=== PATIENT | male | born 1945 | race Caucasian/White ===

== ENCOUNTER 2016-06-14 18:35 | Emergency (ER) | payer OTHER ==
[~2016-06-14] VITALS: Ht 172.7 cm; Wt 88.5 kg
--- NOTE | 2016-06-14 19:14 | ED GI/GU/ABDOMINAL COMPLAINT ---
History of Present Illness General Chief Complaint: Abdominal Pain/Flank Pain Stated Complaint: UPPER ABD PAIN Source: patient Exam Limitations: no limitations Vital Signs & Intake/Output Vital Signs & Intake/Output Vital Signs Date Time Temp Pulse Resp B/P Pulse O2 O2 Flow FiO2 Ox Delivery Rate 06/14 2236 68 18 170/93 96 Room Air 06/14 2128 92 16 127/69 96 Room Air 06/14 2025 66 16 136/78 06/14 1999 Room Air 06/14 1846 97.7 75 12 145/87 98 Room Air Allergies Coded Allergies: NO KNOWN ALLERGIES (06/27/12) Reconcile Medications Alprazolam 0.5 MG TABLET 1 TAB PO BID ANXIETY (Reported) Amlodipine Besylate 10 MG TABLET 1 TAB PO DAILY BP (Reported) Aspirin (Ecotrin*) 81 MG TABLET.DR 1 TAB PO DAILY HEART/BLOOD (Reported) Clopidogrel Bisulfate (Clopidogrel) 75 MG TABLET 1 TAB PO DAILY BLOOD THINNER (Reported) Lisinopril 40 MG TABLET 1 TAB PO DAILY BP (Reported) Pantoprazole Sodium 40 MG TABLET.DR 1 TAB PO DAILY GI (Reported) Pantoprazole Sodium (Protonix) 40 MG TABLET.DR 1 TAB PO DAILY stomach burning Rosuvastatin Calcium (Crestor) 40 MG TABLET 1 TAB PO DAILY CHOLESTEROL ( Reported) Spironolactone 25 MG TABLET 1 TAB PO DAILY DIURETIC (Reported) Triage Note: PT STATES HE IS HAVING EPIGASTRIC PAIN. PT STATES THE PAIN STARTED AFTER HE ATE THIS AFTERNOON. PT REPORTS EATING BAKED ZITI. Triage Nurses Notes Reviewed? yes Onset: Gradual Duration: hour(s): Timing: recent history Quality/Severity: burning Location: epigastric Radiation: no radiation Activities at Onset: none Prior Abdominal Problems: similar symptoms Modifying Factors: Worsens With: eating. Associated Symptoms: abdominal pain HPI: 71-year-old gentleman history of coronary artery disease presents with mid epigastric burning abdominal discomfort since 7 PM. He states the pain is a 3-4 out of 10 at its worst. He states that presently his discomfort is a 3 out of 10. He notes that it began soon after eating dinner. He has no nausea vomiting chest pain shortness of breath diarrhea or radiating pain. He is otherwise well. Past History Travel History Traveled to [place] past 21 day No Medical History Any Pertinent Medical History? see below for history Neurological: TIA EENT: cataracts Cardiovascular: hypertension, hyperlipidemia Respiratory: NONE Gastrointestinal: irritable bowel syndrome Hepatic: NONE Renal: NONE Musculoskeletal: NONE Psychiatric: NONE Endocrine: NONE Blood Disorders: NONE Cancer(s): melanoma Surgical History Surgical History: none Psychosocial History Who do you live with Spouse What is your primary language B[place]wanan Tobacco Use: Quit >30 days ago ETOH Use: occasional use Illicit Drug Use: denies illicit drug use Family History Hx Contributory? No Review of Systems Review of Systems Constitutional: Reports: no symptoms. EENTM: Reports: no symptoms. Respiratory: Reports: no symptoms. Cardiovascular: Reports: no symptoms. GI: Reports: no symptoms. Genitourinary: Reports: no symptoms. Musculoskeletal: Reports: no symptoms. Skin: Reports: no symptoms. Neurological/Psychological: Reports: no symptoms. Hematologic/Endocrine: Reports: no symptoms. Immunologic/Allergic: Reports: no symptoms. All Other Systems: Reviewed and Negative Physical Exam Physical Exam General Appearance: well developed/nourished, no apparent distress Head: atraumatic, normal appearance Eyes: Bilateral: normal appearance. Ears, Nose, Throat, Mouth: hearing grossly normal Neck: normal inspection, supple, full range of motion, normal alignment Respiratory: normal breath sounds, chest non-tender, no respiratory distress, quiet respiration, lungs clear Cardiovascular: regular rate/rhythm Gastrointestinal: normal bowel sounds, soft, non-tender, no organomegaly Back: normal inspection, normal range of motion Extremities: normal range of motion Neurologic/Psych: no motor/sensory deficits, awake, alert, oriented x 3 Skin: intact, normal color, warm/dry Core Measures ACS in differential dx? No Severe Sepsis Present: No Septic Shock Present: No Progress Differential Diagnosis: AMI, gastritis, hepatitis, unstable angina Plan of Care: Orders Procedure Date/time Status PARTIAL THROMBOPLASTIN TIME 06/14 1924 Complete PROTHROMBIN TIME 06/14 1924 Complete D-DIMER 06/14 1924 Complete URINALYSIS 06/14 1914 Complete TROPONIN LEVEL 06/14 1913 Complete LIPASE 06/14 1913 Complete HEPATIC FUNCTION PANEL 06/14 1913 Complete CBC WITHOUT DIFFERENTIAL 06/14 1913 Complete BASIC METABOLIC PANEL 06/14 1913 Complete AMYLASE 06/14 1913 Complete EKG 06/14 1846 Active Laboratory Tests 06/14/161950: Urine Color YEL, Urine Clarity CLEAR, Urine pH 6.0, Ur Specific [place] 1.020, Urine Protein NEG, Urine Ketones NEG, Urine Nitrite NEG, Urine Bilirubin NEG, Urine Urobilinogen 0.2, Ur Leukocyte Esterase NEG, Ur Microscopic EXAM NOT REQUIRED, Urine Hemoglobin NEG, Urine Glucose NEG 06/14/160: Anion Gap 11, Estimated GFR 55 L, BUN/Creatinine Ratio 18.5, Glucose 96, Calcium 9.2, Total Bilirubin 0.5, Direct Bilirubin 0.5 H, AST 28, ALT 20 L, Alkaline Phosphatase 79, Troponin I 0.02, Total Protein 7.2, Albumin 4.1, Amylase 71, Lipase 345 H, PT 11.2, INR 1.07, APTT 29, D-Dimer 788 H, CBC w Diff NO MAN DIFF REQ, RBC 4.35 L, MCV 87.4, MCH 29.3, RDW 13.8, MPV 7.9, Gran % 53.6, Lymphocytes % 29.7, Monocytes % 10.8 H, Eosinophils % 3.9, Basophils % 2.0, Absolute Granulocytes 3.9, Absolute Lymphocytes 2.2, Absolute Monocytes 0.8 H, Absolute Eosinophils 0.3, Absolute Basophils 0.1, PUBS MCHC 33.5 Diagnostic Imaging: Viewed by Me: CT Scan. Discussed w/RAD: CT Scan. Radiology Impression: CT chest angiogram - reveals renal mass. No pulmonary embolism. full report below CXR Impression: no acute abnormality, no infiltrates, normal size heart, normal mediastinum Initial ED EKG: normal axis, normal intervals, normal p-waves, normal QRS complex, normal sinus rhythm Comments: PATIENT: JOSH BATRES PRESENT AGE: 71 PATIENT ACCOUNT NO: [id number] : 46 LOCATION: [facility] ORDERING PHYSICIAN: NATASHA VASQUEZ MD SERVICE DATE: 06/14/16 EXAM TYPE: CAT - CTA CHEST-PULMONARY EMBOLISM EXAMINATION: CT ANGIOGRAM OF THE CHEST WITH AND WITHOUT CONTRAST (CT PULMONARY ANGIOGRAM FOR PE) CLINICAL INFORMATION: Reason for Study:
Presumptive Dx: chest pain, +dimer
Signs Symptoms: room 10
COMPARISON: No pertinent prior studies are available for comparison. TECHNIQUE: Prior to contrast administration, noncontrast localization images were obtained. Subsequently, multidetector volumetric imaging was performed from the thoracic inlet to below the diaphragms following the administration of 80 mL Omnipaque 350 intravenous contrast. No contrast reaction reported Sagittal, coronal, and MIP oblique sagittal reformatted images were obtained on the CT workstation, uploaded to PACS, and reviewed. Total exam dose-length product 480.3 mGy-cm FINDINGS: QUALITY OF STUDY/CONTRAST BOLUS: Satisfactory. PULMONARY ARTERIES: No central or segmental pulmonary emboli. THORACIC AORTA: No aneurysm or dissection. Mild calcific atherosclerotic disease noted. LUNG: There is a pulmonary nodule measuring 0.4 cm in size at the right lung apex (image 8, series 3). There is no focal consolidation. No pneumothorax. There are mild centrilobular emphysematous changes in the upper lobes. PLEURA: No pleural effusion or pneumothorax. MEDIASTINUM: Normal heart size. No pericardial effusion. No hilar or mediastinal lymphadenopathy. No evidence of septal bowing or right heart strain. There are moderate calcifications involving the left anterior descending and left circumflex coronary arteries. CHEST WALL/AXILLA: There is mild symmetric bilateral gynecomastia. No abnormal axillary adenopathy. OSSEOUS STRUCTURES: There are moderate degenerative changes involving the visualized portions of the thoracic and lumbar lumbar spine. These include prominent anterior bridging osteophytes at the mid spine level. UPPER ABDOMEN: There is a partially seen mass at the mid pole of the right kidney measuring approximately 3.1 x 3.3 cm. This appears to be solid in nature but is not well characterized on this study. Remainder of the upper abdomen is grossly unremarkable. No reflux of contrast into the hepatic veins to suggest elevated right heart pressures. IMPRESSION: 1. No acute pulmonary embolism. 2. No acute cardiopulmonary process. 3. Possible right renal solid mass. Dedicated right renal ultrasound is recommended for further clarification. 4. 4 mm right apical pulmonary nodule. Follow-up as per Fleischner Society criteria 5. Mild upper lobe centrilobular emphysematous change. VTE: negative Various management parameters for solitary pulmonary nodules are in the literature. According to the Fleischner Society, recommendations for pulmonary nodules are as follows: Nodule size < or = to 4 mm in LOW RISK PATIENTS: No follow up needed. Nodule size < or = to 4 mm in HIGH RISK PATIENTS: Follow up CT at 12 months; if unchanged, no further follow up. Nodule size > 4-6 mm in LOW RISK PATIENTS: Follow up CT at 12 months; if unchanged, no further follow up. Nodule size > 4-6 mm in HIGH RISK PATIENTS: Initial follow up CT at 6-12 months, then at 18-24 months if no change. Nodule size > 6-8 mm in LOW RISK PATIENTS: Initial follow up CT at 6-12 months, then at 18-24 months if no change. Nodule size > 6-8 mm in HIGH RISK PATIENTS: Initial follow up CT at 3-6 months, then 9-12 months and 24 months if no change. Nodule size > 8 mm in LOW RISK PATIENTS: Follow up CT at around 3, 9, and 24 months, dynamic contrast-enhanced CT, PET, and/or biopsy. Nodule size > 8 mm in HIGH RISK PATIENTS: Same as for low-risk patients. 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 <Electronically signed in Other Vendor System> SIGNED BY: KATI JOHNSTON MD 06/14/162211 Departure Departure Disposition: HOME OR SELF CARE Condition: Stable Clinical Impression Primary Impression: Abdominal pain Referrals: KETAN MAY MD (PCP/Family) Departure Forms: Customer Survey General Discharge Information Prescriptions: Current Visit Scripts Pantoprazole Sodium (Protonix) 1 TAB PO DAILY #30 TAB Comments 06/14/16, 23:00... Given the patient's history of coronary artery disease, I was concerned that his mid epigastric discomfort may have been an anginal equivalent. I gave sublingual nitroglycerin without effect. I gave GI cocktail which she noted improved his symptoms. I gave him Protonix 40 mg IV 1 which resolved his symptoms. Because of the positive d-dimer, I ordered a chest CT angioma. This was negative for pulmonary emboli but revealed a renal opacity as well as other nonacute findings. I discussed these findings with the patient. I suggested that the patient stay for a second troponin and a repeat EKG. However, because he said that his symptoms have completely resolved with the Protonix and GI cocktail, he wishes to leave. 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
[2016-06-14] MEDS ORDERED: ALPRAZOLAM0.5 M4 PO (19:28)
[2016-06-14] MEDS ORDERED: CLOPIDOGREL75 M1 PO (19:28)
[2016-06-14] MEDS ORDERED: AMLODIPINE BESY10 M1 PO (19:28)
[2016-06-14] MEDS ORDERED: CRESTOR40 M2 PO (19:28)
[2016-06-14] MEDS ORDERED: SPIRONOLACTONE25 M1 PO (19:29)
[2016-06-14] MEDS ORDERED: ASPIRIN EC81 M1 PO (19:29)
[2016-06-14] MEDS ORDERED: LISINOPRIL40 M1 PO (19:29)
[2016-06-14] MEDS ORDERED: PANTOPRAZOLE SO40 M1 PO (19:29)
[2016-06-14 19:48] LABS: ABSOLUTE BASOPHIL COUNT 0.1 /CUMM (0.0-0.2); ABSOLUTE EOSINOPHIL COUNT 0.3 /CUMM (0.0-0.7); ABSOLUTE GRANULOCYTE CT 3.9 /CUMM (1.4-6.5); ABSOLUTE LYMPH COUNT 2.2 /CUMM (1.2-3.4); ABSOLUTE MONOCYTE COUNT 0.8 /CUMM (0.10-0.60); EOSINOPHIL % 3.9 % (0-5); GRANULOCYTE % 53.6 % (42.2-75.2); MEAN CORPUSCULAR HGB 29.3 PG (27.0-31.0); MEAN CORPUSCULAR HGB CONC 33.5 G/DL (33.0-37.0); MEAN CORPUSCULAR VOLUME 87.4 FL (80.0-94.0); MEAN PLATELET VOLUME 7.9 FL (7.4-10.4); PLATELET COUNT 235 /CUMM (130-400); RBC DISTRIBUTION WIDTH 13.8 % (11.5-14.5); RED BLOOD CELL CT 4.35 /CUMM (4.70-6.10); WHITE BLOOD CELL COUNT 7.4 /CUMM (4.8-10.8)
[2016-06-14 20:02] LABS: PT 11.2 SEC (9.4-12.5); PTT 29 SEC (25-37)
--- NOTE | 2016-06-14 22:12 | CT SCAN REPORT ---
EXAMINATION: CT ANGIOGRAM OF THE CHEST WITH AND WITHOUT CONTRAST (CT PULMONARY ANGIOGRAM FOR PE) CLINICAL INFORMATION: Reason for Study:
Presumptive Dx: chest pain, +dimer
Signs Symptoms: room 10
COMPARISON: No pertinent prior studies are available for comparison. TECHNIQUE: Prior to contrast administration, noncontrast localization images were obtained. Subsequently, multidetector volumetric imaging was performed from the thoracic inlet to below the diaphragms following the administration of 80 mL Omnipaque 350 intravenous contrast. No contrast reaction reported Sagittal, coronal, and MIP oblique sagittal reformatted images were obtained on the CT workstation, uploaded to PACS, and reviewed. Total exam dose-length product 480.3 mGy-cm FINDINGS: QUALITY OF STUDY/CONTRAST BOLUS: Satisfactory. PULMONARY ARTERIES: No central or segmental pulmonary emboli. THORACIC AORTA: No aneurysm or dissection. Mild calcific atherosclerotic disease noted. LUNG: There is a pulmonary nodule measuring 0.4 cm in size at the right lung apex (image 8, series 3). There is no focal consolidation. No pneumothorax. There are mild centrilobular emphysematous changes in the upper lobes. PLEURA: No pleural effusion or pneumothorax. MEDIASTINUM: Normal heart size. No pericardial effusion. No hilar or mediastinal lymphadenopathy. No evidence of septal bowing or right heart strain. There are moderate calcifications involving the left anterior descending and left circumflex coronary arteries. CHEST WALL/AXILLA: There is mild symmetric bilateral gynecomastia. No abnormal axillary adenopathy. OSSEOUS STRUCTURES: There are moderate degenerative changes involving the visualized portions of the thoracic and lumbar lumbar spine. These include prominent anterior bridging osteophytes at the mid spine level. UPPER ABDOMEN: There is a partially seen mass at the mid pole of the right kidney measuring approximately 3.1 x 3.3 cm. This appears to be solid in nature but is not well characterized on this study. Remainder of the upper abdomen is grossly unremarkable. No reflux of contrast into the hepatic veins to suggest elevated right heart pressures. IMPRESSION: 1. No acute pulmonary embolism. 2. No acute cardiopulmonary process. 3. Possible right renal solid mass. Dedicated right renal ultrasound is recommended for further clarification. 4. 4 mm right apical pulmonary nodule. Follow-up as per Fleischner Society criteria 5. Mild upper lobe centrilobular emphysematous change. VTE: negative Various management parameters for solitary pulmonary nodules are in the literature. According to the Fleischner Society, recommendations for pulmonary nodules are as follows: Nodule size < or = to 4 mm in LOW RISK PATIENTS: No follow up needed. Nodule size < or = to 4 mm in HIGH RISK PATIENTS: Follow up CT at 12 months; if unchanged, no further follow up. Nodule size > 4-6 mm in LOW RISK PATIENTS: Follow up CT at 12 months; if unchanged, no further follow up. Nodule size > 4-6 mm in HIGH RISK PATIENTS: Initial follow up CT at 6-12 months, then at 18-24 months if no change. Nodule size > 6-8 mm in LOW RISK PATIENTS: Initial follow up CT at 6-12 months, then at 18-24 months if no change. Nodule size > 6-8 mm in HIGH RISK PATIENTS: Initial follow up CT at 3-6 months, then 9-12 months and 24 months if no change. Nodule size > 8 mm in LOW RISK PATIENTS: Follow up CT at around 3, 9, and 24 months, dynamic contrast-enhanced CT, PET, and/or biopsy. Nodule size > 8 mm in HIGH RISK PATIENTS: Same as for low-risk patients.
[2016-06-14] MEDS ORDERED: PROTONIX40 M3 PO (22:31)
[2016-06-14 22:36] VITALS: BP 170/93
== END 2016-06-14 22:39 ==
LOC: ERH 18:35
PROVIDERS: Pediatrics
DX: R10.13 Epigastric pain (principal)
CPT/HCPCS: 81003; 93005; 93010; 96374; J3490

== ENCOUNTER 2016-09-27 23:37 | Emergency (ER) | payer OTHER ==
[~2016-09-27] VITALS: Ht 172.7 cm; Wt 90.7 kg
[~2016-09-27 23:37] MED LIST: ALPRAZOLAM0.5 M4 PO; AMLODIPINE BESY10 M1 PO; ASPIRIN EC81 M1 PO; CLOPIDOGREL75 M1 PO; CRESTOR40 M2 PO; LISINOPRIL40 M1 PO; PANTOPRAZOLE SO40 M1 PO; PROTONIX40 M3 PO; SPIRONOLACTONE25 M1 PO
--- NOTE | 2016-09-27 23:54 | ED DYSPNEA/ASTHMA COMPLAINT ---
History of Present Illness General Chief Complaint: Dyspnea (COPD, CHF, Other) Stated Complaint: "KIDNEY SURGERY LAST WEDNESDAY, TODAY SOB SPO2 99%" Source: patient, family Exam Limitations: no limitations Vital Signs & Intake/Output Vital Signs & Intake/Output Vital Signs Date Time Temp Pulse Resp B/P B/P Pulse O2 O2 Flow FiO2 Mean Ox Delivery Rate 09/28 0207 97.3 67 18 113/61 99 Room Air 09/28 0005 97.3 69 18 114/60 98 Allergies Coded Allergies: NO KNOWN ALLERGIES (06/27/12) Reconcile Medications Alprazolam 0.5 MG TABLET 1 TAB PO BID ANXIETY (Reported) Amlodipine Besylate 10 MG TABLET 1 TAB PO DAILY BP (Reported) Aspirin (Ecotrin*) 81 MG TABLET.DR 1 TAB PO DAILY HEART/BLOOD (Reported) Clopidogrel Bisulfate (Clopidogrel) 75 MG TABLET 1 TAB PO DAILY BLOOD THINNER (Reported) Levofloxacin (Levaquin) 500 MG TABLET 1 TAB PO DAILY BRONCHITIS Lisinopril 40 MG TABLET 1 TAB PO DAILY BP (Reported) Pantoprazole Sodium 40 MG TABLET.DR 1 TAB PO DAILY GI (Reported) Pantoprazole Sodium (Protonix) 40 MG TABLET.DR 1 TAB PO DAILY stomach burning Rosuvastatin Calcium (Crestor) 40 MG TABLET 1 TAB PO DAILY CHOLESTEROL ( Reported) Spironolactone 25 MG TABLET 1 TAB PO DAILY DIURETIC (Reported) Triage Nurses Notes Reviewed? yes Onset: Abrupt Duration: hour(s): Timing: recent history Severity: moderate Activities at Onset: none Prior Episodes/Possible Cause: no prior episodes Modifying Factors: Improves With: rest. Associated Symptoms: "shortness of breath" HPI: 71 yo gentleman h/o partial right nephrectomy on september 17, presents with 2 episodes of shortness of breath, associated with diaphoresis, chills, and near-syncope. He states that he feels well now. He notes no chest pain, diarrhea, dysuria, headache, wheezing, or cough. He is otherwise well. Past History Travel History Traveled to [place] past 21 day No Medical History Any Pertinent Medical History? see below for history Neurological: TIA EENT: cataracts Cardiovascular: hypertension, hyperlipidemia Respiratory: NONE Gastrointestinal: irritable bowel syndrome Hepatic: NONE Renal: NONE Musculoskeletal: NONE Psychiatric: NONE Endocrine: NONE Blood Disorders: NONE Cancer(s): melanoma Surgical History Surgical History: none Psychosocial History Who do you live with Spouse What is your primary language [place] Family History Hx Contributory? No Review of Systems Review of Systems Constitutional: Reports: no symptoms. EENTM: Reports: no symptoms. Respiratory: Reports: no symptoms. Cardiovascular: Reports: no symptoms. GI: Reports: no symptoms. Genitourinary: Reports: no symptoms. Musculoskeletal: Reports: no symptoms. Skin: Reports: no symptoms. Neurological/Psychological: Reports: no symptoms. Hematologic/Endocrine: Reports: no symptoms. Immunologic/Allergic: Reports: no symptoms. All Other Systems: Reviewed and Negative Physical Exam Physical Exam General Appearance: well developed/nourished, no apparent distress Head: atraumatic, normal appearance Eyes: Bilateral: normal appearance. Ears, Nose, Throat: normal pharynx, normal ENT inspection Neck: normal inspection, supple, full range of motion Respiratory: chest non-tender, no respiratory distress, quiet respiration, diminished breath sounds at right base Cardiovascular: regular rate/rhythm Gastrointestinal: normal bowel sounds, soft, non-tender, no organomegaly Extremities: normal inspection Neurologic/Psych: no motor/sensory deficits, awake, alert, oriented x 3 Skin: intact, normal color, warm/dry Core Measures ACS in differential dx? No Severe Sepsis Present: No Septic Shock Present: No Progress Differential Diagnosis: asthma, AMI, bronchitis, pneumonia Plan of Care: Orders Procedure Date/time Status Add-on Test (ER Only) 09/28 0116 Active TROPONIN LEVEL 09/27 2348 Complete COMPREHENSIVE METABOLIC PANEL 09/27 2348 Complete CBC WITHOUT DIFFERENTIAL 09/28 2347 Complete EKG 09/27 2340 Active Laboratory Tests 09/27/16 2357: Anion Gap 13, Estimated GFR 43 L, BUN/Creatinine Ratio 14.4, Glucose 163 H, Calcium 8.6, Total Bilirubin 0.4, AST 31, ALT 69, Alkaline Phosphatase 84, Troponin I < 0.01, Total Protein 6.4, Albumin 3.6, Globulin 2.8, Albumin/ Globulin Ratio 1.3, CBC w Diff MAN DIFF ORDERED, RBC 3.71 L, MCV 87.6, MCH 28.6 , RDW 14.1, MPV 7.3 L, Gran % 84.1 H, Lymphocytes % 8.4 L, Monocytes % 5.2, Eosinophils % 2.2, Basophils % 0.1, Absolute Granulocytes 15.8 H, Absolute Lymphocytes 1.6, Absolute Monocytes 1.0 H, Absolute Eosinophils 0.4, Absolute Basophils 0, Platelet Estimate ADEQUATE, Ovalocytes 1+, PUBS MCHC 32.7 L 09/27/16 2353: D-Dimer Cancelled Diagnostic Imaging: Viewed by Me: Radiology Read. Discussed w/RAD: Radiology Read. CXR Impression: no acute abnormality, no infiltrates, normal size heart, normal mediastinum Initial ED EKG: normal axis, none, normal intervals, normal p-waves, normal QRS complex Comments: PATIENT: JOSH BATRES PRESENT AGE: 71 PATIENT ACCOUNT NO: [id number] : 46 LOCATION: [facility] ORDERING PHYSICIAN: NATASHA VASQUEZ MD SERVICE DATE: 09/27/16 EXAM TYPE: RAD - XRY-PORTABLE CHEST XRAY EXAMINATION: XR PORTABLE CHEST CLINICAL INFORMATION: Dyspnea COMPARISON: 06/14/2016 TECHNIQUE: Portable frontal view of the chest was obtained. FINDINGS: The lungs are well expanded with mild elevation of the right hemidiaphragm. No consolidation, edema, or effusion. No pneumothorax. The cardiomediastinal silhouette is unchanged. Aortic calcification noted. IMPRESSION: No acute pulmonary finding. DICTATED BY: MARY KATE LUCAS MD DATE/TIME DICTATED:09/28/16104 PIPELINE ENGINEER:JOY DATE/TIME TRANSCRIBED:09/28/16104 CONFIDENTIAL, DO NOT COPY WITHOUT APPROPRIATE AUTHORIZATION. <Electronically signed in Other Vendor System> SIGNED BY: MARY KATE LUCAS MD 09/28 Departure Departure Disposition: HOME OR SELF CARE Condition: Stable Clinical Impression Primary Impression: Bronchitis Referrals: KETAN MAY MD (PCP/Family) Departure Forms: Customer Survey General Discharge Information Prescriptions: Current Visit Scripts Levofloxacin (Levaquin) 1 TAB PO DAILY #10 TAB Comments PT comfortable throughtout ED stay. elevated wbc count noted with negative cxr... most consistent with bronchitis... pt safe for home with outpt meds. close follow up avised. Critical Care Note Critical Care Note Critical Care Time: non-applicable
[2016-09-28 00:20] LABS: ABSOLUTE BASOPHIL COUNT 0 /CUMM (0.0-0.2); ABSOLUTE EOSINOPHIL COUNT 0.4 /CUMM (0.0-0.7); ABSOLUTE GRANULOCYTE CT 15.8 /CUMM (1.4-6.5); ABSOLUTE LYMPH COUNT 1.6 /CUMM (1.2-3.4); BASOPHIL % 0.1 % (0.0-2.0); EOSINOPHIL % 2.2 % (0-5); GRANULOCYTE % 84.1 % (42.2-75.2); HEMATOCRIT 32.5 % (42-52); MEAN CORPUSCULAR HGB 28.6 PG (27.0-31.0); MEAN CORPUSCULAR HGB CONC 32.7 G/DL (33.0-37.0); MEAN CORPUSCULAR VOLUME 87.6 FL (80.0-94.0); MEAN PLATELET VOLUME 7.3 FL (7.4-10.4); PLATELET COUNT 392 /CUMM (130-400); RBC DISTRIBUTION WIDTH 14.1 % (11.5-14.5); RED BLOOD CELL CT 3.71 /CUMM (4.70-6.10); WHITE BLOOD CELL COUNT 18.8 /CUMM (4.8-10.8)
--- NOTE | 2016-09-28 01:08 | RADIOLOGY REPORT ---
EXAMINATION: XR PORTABLE CHEST CLINICAL INFORMATION: Dyspnea COMPARISON: 06/14/2016 TECHNIQUE: Portable frontal view of the chest was obtained. FINDINGS: The lungs are well expanded with mild elevation of the right hemidiaphragm. No consolidation, edema, or effusion. No pneumothorax. The cardiomediastinal silhouette is unchanged. Aortic calcification noted. IMPRESSION: No acute pulmonary finding.
[2016-09-28] MEDS ORDERED: LEVAQUIN500 M1 PO (01:42)
[2016-09-28 02:07] VITALS: BP 113/61
== END 2016-09-28 02:07 ==
LOC: ERH 23:37
PROVIDERS: Pediatrics
DX: J40 Bronchitis, not specified as acute or chronic (principal)
CPT/HCPCS: 93005; 93010; J3490

== ENCOUNTER 2017-05-29 17:21 | Observation (INO) | payer OTHER ==
[~2017-05-29] VITALS: Ht 172.7 cm; Wt 90.7 kg
[~2017-05-29 17:21] MED LIST changes: +CABERGOLINE0.5 M2 PO; +LEVAQUIN500 M1 PO
--- NOTE | 2017-05-29 18:03 | RADIOLOGY REPORT ---
EXAMINATION: XR CHEST CLINICAL INFORMATION: Cough, nonproductive COMPARISON: 09/28/2016 TECHNIQUE: 2 views of the chest were obtained. FINDINGS: Lung volumes are improved from the prior study. No focal consolidation or mass. Normal pulmonary vascularity. No pleural effusion or pneumothorax. Calcified aortic arch. Normal heart size. Degenerative changes of the thoracic spine with no acute osseous abnormality. IMPRESSION: No acute pulmonary disease.
--- NOTE | 2017-05-29 18:47 | ED INFLUENZA/URI COMPLAINT ---
History of Present Illness General Chief Complaint: Upper Respiratory Sx/Fever Stated Complaint: COLD SYMPTOMS Source: patient Exam Limitations: no limitations Allergies Coded Allergies: NO KNOWN ALLERGIES (06/27/12) Reconcile Medications Alprazolam 0.5 MG TABLET 1 TAB PO BID ANXIETY (Reported) Amlodipine Besylate 10 MG TABLET 1 TAB PO DAILY BP (Reported) Aspirin (Ecotrin*) 81 MG TABLET.DR 1 TAB PO DAILY HEART/BLOOD (Reported) Clopidogrel Bisulfate (Clopidogrel) 75 MG TABLET 1 TAB PO DAILY BLOOD THINNER (Reported) Levofloxacin (Levaquin) 500 MG TABLET 1 TAB PO DAILY BRONCHITIS Lisinopril 40 MG TABLET 1 TAB PO DAILY BP (Reported) Pantoprazole Sodium 40 MG TABLET.DR 1 TAB PO DAILY GI (Reported) Pantoprazole Sodium (Protonix) 40 MG TABLET.DR 1 TAB PO DAILY stomach burning Rosuvastatin Calcium (Crestor) 40 MG TABLET 1 TAB PO DAILY CHOLESTEROL ( Reported) Spironolactone 25 MG TABLET 1 TAB PO DAILY DIURETIC (Reported) Triage Note: PT COMPLAINS OF COUGH, NON PRODUCTIVE FOR THE PAST COUPLE OF DAYS, WORSE AT NIGHT Triage Nurses Notes Reviewed? yes Onset: Abrupt Timing: single episode today Severity: moderate Severity Numbers: 5 HPI: Patient is a 72-year-old male with a past medical history of CAD with cardiac stents currently Plavix, hyperprolactinemia currently on CABERGOLINE, hypertension and hyperlipidemia and his melanoma of the scalp who presents emergency room with in which yesterday patient again coughing at night dry nonproductive cough that continued today and which this afternoon patient was in his private residence in his home got up from the [facility] to answer a phone call from his answer the phone and then had a presumed loss of consciousness syncopal episode in which the police the patient was unconscious for approximately 30 seconds Y states that when patient began responding he was showing no disorientation or slurred speech patient states that he does not recall what occurred and states she has mild right gluteal pain due to fall Denies any other injury from the fall Patient believes that he has low blood pressure history as responsible for the fall Patient does state that recently his cis coordinator has put patient on the medication as stated above CABERGOLINE for a "pituitary issue" Patient currently denies any fevers chills headache blurred vision neck pain back pain chest pain nausea vomiting bowel or bladder incontinence or tongue biting episode patient is able to ambulate after the event (Paras Mullins) Vital Signs & Intake/Output Vital Signs & Intake/Output Vital Signs Date Time Temp Pulse Resp B/P B/P Pulse O2 O2 Flow FiO2 Mean Ox Delivery Rate 05/29 2101 75 110/61 05/29 1922 Room Air 05/29 1724 97.1 70 16 123/71 99 Room Air (Jeff CORDERO,Omar Osborne) Past History Travel History Traveled to [place] past 21 day No Medical History Any Pertinent Medical History? see below for history Neurological: TIA EENT: cataracts Cardiovascular: CAD, hypertension, hyperlipidemia Respiratory: NONE Gastrointestinal: irritable bowel syndrome Hepatic: NONE Renal: NONE Musculoskeletal: NONE Psychiatric: NONE Endocrine: NONE Blood Disorders: NONE Cancer(s): melanoma Surgical History Surgical History: none Psychosocial History Who do you live with Spouse What is your primary language [place] Tobacco Use: Never used ETOH Use: denies use Illicit Drug Use: denies illicit drug use Family History Hx Contributory? No (Paras Mullins) Review of Systems Review of Systems Constitutional: Reports: no symptoms. EENTM: Reports: no symptoms. Respiratory: Reports: no symptoms. Cardiovascular: Reports: see HPI, syncope. GI: Reports: no symptoms. Genitourinary: Reports: no symptoms. Musculoskeletal: Reports: see HPI. Skin: Reports: no symptoms. Neurological/Psychological: Reports: no symptoms. Hematologic/Endocrine: Reports: no symptoms. Immunologic/Allergic: Reports: no symptoms. All Other Systems: Reviewed and Negative (Paras Mullins) Physical Exam Physical Exam General Appearance: no apparent distress, alert Head: atraumatic Eyes: Bilateral: normal appearance, PERRL, EOMI. Ears, Nose, Throat: normal ENT inspection, moist mucous membrane, hearing grossly normal Neck: normal inspection, supple, full range of motion, no midline tenderness, NO CAROTID BRUITS Respiratory: normal breath sounds, chest non-tender, no respiratory distress Cardiovascular: regular rate/rhythm Peripheral Pulses: 2+ radial (R) Gastrointestinal: normal bowel sounds, soft, non-tender Extremities: normal inspection, normal capillary refill, normal range of motion Neurologic/Psych: no motor/sensory deficits, awake, alert, oriented x 3 Skin: intact, normal color, warm/dry Core Measures Sepsis Present: No Sepsis Focused Exam Completed? No (Paras Mullins) Progress Differential Diagnosis: influenza, meningitis, neutropenia, otitis, pneumonia, pharyngitis, sinusitis Plan of Care: Orders Procedure Date/time Status Heart Healthy Diet 05/[address] in observation 05/29 2115 Active ED Holding Orders 05/29 2115 Active Vital Signs 05/29 2115 Active Code Status 05/29 2115 Active RAPID VIRAL INFLUENZA A 05/29 2021 Active PROLACTIN 05/29 1949 Complete MISTAKE 05/29 1932 Active Telemetry/Head Of Geography 05/29 1932 Active TROPONIN LEVEL 05/29 1916 Complete MAGNESIUM 05/29 1916 Complete COMPREHENSIVE METABOLIC PANEL 05/29 1916 Complete CBC WITHOUT DIFFERENTIAL 05/29 1916 Complete EKG 05/29 1916 Active Current Medications Sig/Jacky Start time Last Medication Dose Stop Time Status Admin Benzonatate 100 MG ONCE ONE 05/29 2129 UNVr (Tessalon Capsule) 05/29 2130 Guaifenesin 600 MG ONCE ONE 05/29 2129 UNVr (Mucinex) 05/29 2130 Laboratory Tests 05/29/17 1950: Anion Gap 13, Estimated GFR 31 L, BUN/Creatinine Ratio 16.7, Glucose 111 H, Calcium 9.1, Magnesium 2.1, Total Bilirubin 0.4, AST 33, ALT 35, Alkaline Phosphatase 89, Troponin I 0.03, Total Protein 7.3, Albumin 4.3, Globulin 3.0, Albumin/Globulin Ratio 1.4, Prolactin < 1.4 L, CBC w Diff NO MAN DIFF REQ, RBC 4.46 L, MCV 88.7, MCH 29.8, RDW 14.0, MPV 7.6, Gran % 70.8, Lymphocytes % 17.5 L, Monocytes % 10.7 H, Eosinophils % 0.6, Basophils % 0.4, Absolute Granulocytes 4.2, Absolute Lymphocytes 1.1 L, Absolute Monocytes 0.6, Absolute Eosinophils 0, Absolute Basophils 0, PUBS MCHC 33.6 05/29/171934: Prolactin Cancelled Microbiology 05/29 2021 NASOPHARYN: Influenza Virus A & B Rapid Smear - ORD It is noted through old records the patient recently received a month ago with an MRI of his head for concerns of pituitary macroadenoma. Patient currently is resting comfortably at bedside and has unremarkable physical exam findings, Patient will be placed into telemetry observation for concerns of the syncopal episode occurring today Patient had negative orthostatics noted by nursing staff. I updated WITH PT FOR images findings and blood work he is currently resting comfortably Discussed patient with Dr. Colvin who advised patient to be placed in telemetry observation Diagnostic Imaging: Viewed by Me: CT Scan. CXR Impression: no acute abnormality, no infiltrates, normal size heart Initial ED EK BPM, FIRST DEGREE AV BLOCK Comments: PATIENT: JOSH BATRES PRESENT AGE: 72 PATIENT ACCOUNT NO: [id number] : 46 LOCATION: [facility] ORDERING PHYSICIAN: Paras CERVANTES SERVICE DATE: 05/29/17 EXAM TYPE: CAT - CT CERV SPINE WO IV CONTRAST; CT HEAD WO IV CONTRAST EXAMINATION: CT HEAD WITHOUT CONTRAST CT CERVICAL SPINE WITHOUT CONTRAST CLINICAL INFORMATION: Syncope. Head strike. COMPARISON: CT neck 04/09/2017. MRI of head 04/29/2017. CT chest 06/14/2016 TECHNIQUE: Imaging was performed from the skull base to vertex without intravenous administration of contrast. In addition, helical noncontrast CT imaging was acquired through the cervical spine and source images were reviewed along with axial reconstructions and sagittal and coronal MPRs. DLP: 939.83 mGy-cm FINDINGS: HEAD: No intracranial mass, hemorrhage, or midline shift is visualized. The ventricles and sulci are age-appropriate. Stable small lacunar infarcts in the right basal ganglia. No extra-axial collections are identified. The large mass in the central right aspect of the pituitary fossa with surrounding bony remodeling again seen. This was demonstrated to be a pituitary microadenoma on MRI of head 04/29/2017. See separate report. Vascular wall calcification of the carotid vessels again noted. No skull fracture. There is a soft tissue defect of the scalp at the right vertex, axial image 217 (6), that extends to the bone. CERVICAL SPINE: There is no evidence of acute cervical spine fracture. Vertebral bodies remain normal in height and alignment. There is degenerative spondylosis. Cervical disc height narrowing with endplate spurs most pronounced at the lower cervical spine, C5-C6. There is moderate multilevel facet joint bilateral. No pre- or paravertebral soft tissue abnormality is identified. The right lung apex there is a 6 x 4 mm lung nodule, image 283 (8). This is stable since the exam of 06/14/2016 IMPRESSION: 1. No acute intracranial pathology. 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 2. No CT evidence of acute cervical spine fracture or traumatic subluxation. Degenerative spondylosis of cervical spine. 3. 6 mm lung nodule right lung apex stable since CAT scan 06/14/2016 DICTATED BY: Dean Sharpe MD DATE/TIME DICTATED:05/29/172021 SEPTIC TANK SERVICER:JOY PATIENT: JOSH BATRES PRESENT AGE: 72 PATIENT ACCOUNT NO: [id number] : 46 LOCATION: [facility] ORDERING PHYSICIAN: Terence Burrell DO SERVICE DATE: 05/29/17 EXAM TYPE: RAD - XRY-CHEST XRAY, TWO VIEWS EXAMINATION: XR CHEST CLINICAL INFORMATION: Cough, nonproductive COMPARISON: 09/28/2016 TECHNIQUE: 2 views of the chest were obtained. FINDINGS: Lung volumes are improved from the prior study. No focal consolidation or mass. Normal pulmonary vascularity. No pleural effusion or pneumothorax. Calcified aortic arch. Normal heart size. Degenerative changes of the thoracic spine with no acute osseous abnormality. IMPRESSION: No acute pulmonary disease. DICTATED BY: Edouard Iverson MD (Paras Mullins) Departure Departure Disposition: STILL A PATIENT Condition: Stable Clinical Impression Primary Impression: Syncope Secondary Impressions: KENIA (acute kidney injury), URI (upper respiratory infection) Referrals: Alexa CORDERO,Omar Bowling (PCP/Family) Departure Forms: Customer Survey General Discharge Information Observation Note Spoke With: Marii CORDERO PHD,Americo Vera Physician Advisor Notified: JEFF CORDERO,OMAR Osborne Place Patient In: Non-ED OBS Care Area Rationale for Observation: My rational for observation is as follows [patient work requires telemetry observation for concerns of a syncopal episode, cardiology consultation is warranted, telemetry monitoring, repeat labs, carotid ultrasounds]. (Paras Mullins) PA/HEALTH CARE SPECIALIST Co-Sign Statement Statement: ED Attending supervision documentation- [X] I saw and evaluated the patient. I have also reviewed all the pertinent lab results and diagnostic results. I agree with the findings and the plan of care as documented in the PA's/HEALTH CARE SPECIALIST's documentation. [X] I have reviewed the ED Record and agree with the PA's/HEALTH CARE SPECIALIST's documentation. [] Additions or exceptions (if any) to the PAs/HEALTH CARE SPECIALIST's note and plan are summarized below: [Syncopal episode with no prodromal symptoms. High risk for cardiac dysrhythmia. Patient to be placed in observation for serial enzymes and telemetry monitoring, cardiology evaluation and further workup.] (Jeff CORDERO,Omar Osborne) Critical Care Note Critical Care Note Critical Care Time: 30-74 min (Paras Mullins) Critical Care Note Critical Care Time: 30-74 min (Paras Mullins) (Paras Mullins)
[2017-05-29 20:00] LABS: ABSOLUTE BASOPHIL COUNT 0 /CUMM (0.0-0.2); ABSOLUTE EOSINOPHIL COUNT 0 /CUMM (0.0-0.7); ABSOLUTE GRANULOCYTE CT 4.2 /CUMM (1.4-6.5); ABSOLUTE LYMPH COUNT 1.1 /CUMM (1.2-3.4); ABSOLUTE MONOCYTE COUNT 0.6 /CUMM (0.10-0.60); BASOPHIL % 0.4 % (0.0-2.0); EOSINOPHIL % 0.6 % (0-5); GRANULOCYTE % 70.8 % (42.2-75.2); HEMATOCRIT 39.5 % (42-52); MEAN CORPUSCULAR HGB 29.8 PG (27.0-31.0); MEAN CORPUSCULAR HGB CONC 33.6 G/DL (33.0-37.0); MEAN CORPUSCULAR VOLUME 88.7 FL (80.0-94.0); MEAN PLATELET VOLUME 7.6 FL (7.4-10.4); PLATELET COUNT 191 /CUMM (130-400); RED BLOOD CELL CT 4.46 /CUMM (4.70-6.10)
--- NOTE | 2017-05-29 20:36 | CT SCAN REPORT ---
EXAMINATION: CT HEAD WITHOUT CONTRAST CT CERVICAL SPINE WITHOUT CONTRAST CLINICAL INFORMATION: Syncope. Head strike. COMPARISON: CT neck 04/09/2017. MRI of head 04/29/2017. CT chest 06/14/2016 TECHNIQUE: Imaging was performed from the skull base to vertex without intravenous administration of contrast. In addition, helical noncontrast CT imaging was acquired through the cervical spine and source images were reviewed along with axial reconstructions and sagittal and coronal MPRs. DLP: 939.83 mGy-cm FINDINGS: HEAD: No intracranial mass, hemorrhage, or midline shift is visualized. The ventricles and sulci are age-appropriate. Stable small lacunar infarcts in the right basal ganglia. No extra-axial collections are identified. The large mass in the central right aspect of the pituitary fossa with surrounding bony remodeling again seen. This was demonstrated to be a pituitary microadenoma on MRI of head 04/29/2017. See separate report. Vascular wall calcification of the carotid vessels again noted. No skull fracture. There is a soft tissue defect of the scalp at the right vertex, axial image 217 (6), that extends to the bone. CERVICAL SPINE: There is no evidence of acute cervical spine fracture. Vertebral bodies remain normal in height and alignment. There is degenerative spondylosis. Cervical disc height narrowing with endplate spurs most pronounced at the lower cervical spine, C5-C6. There is moderate multilevel facet joint bilateral. No pre- or paravertebral soft tissue abnormality is identified. The right lung apex there is a 6 x 4 mm lung nodule, image 283 (8). This is stable since the exam of 06/14/2016 IMPRESSION: 1. No acute intracranial pathology. 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 2. No CT evidence of acute cervical spine fracture or traumatic subluxation. Degenerative spondylosis of cervical spine. 3. 6 mm lung nodule right lung apex stable since CAT scan 06/14/2016
--- NOTE | 2017-05-29 22:29 | History & Physical ---
General Information and [facility] MD Statement: I have seen and personally examined JOSH BATRES and documented this H&P. The patient is a 72 year old M who presented with a patient stated chief complaint of [SYNCOPE]. Source of Information: patient Exam Limitations: no limitations History of Present Illness: 72-year-old male with a past medical history of coronary artery disease status post stents on Plavix, hyperprolactinemia currently on Cabergoline, hypertension , hyperlipidemia, melanoma of the scalp who presents to the ED after having an unwitnessed syncopal event. According to the patient he was initially associated helped until this morning when he got out of his chair to answer the phone for his is calling him from outside when he felt down and passed out. He states that he may have been a police a couple of seconds. He denies hitting his head or being convinced refused for having any slurred speech. Of note he does endorse having a low blood pressure this morning stating that was 87/57 as he had been feeling tired the entire morning. His borderline blood pressures are in the 120s. Patient does endorse 2 episodes of diarrhea that was nonbloody and watery history. He denies any chest pain, shortness of breath, however does endorse chills that started around Wednesday. Of note he never takes his flu shot and did not take one this season. He also endorses cough that started last night together with a sore throat that started night. The cough is nonproductive. Denies any history of sick contact. Of note he pulls up with Dr. Palencia and Dr. schuster he has a history of coronary artery disease and is status post stents and on 2 antiplatelet therapy with aspirin and Plavix. He states that his stents were placed about 5 years ago. He reports a that she recently had an echocardiogram done that was normal. Allergies/Medications Allergies: Coded Allergies: NO KNOWN ALLERGIES (06/27/12) Home Med list Alprazolam 0.5 MG TABLET 1 TAB PO BID ANXIETY (Reported) Amlodipine Besylate 10 MG TABLET 1 TAB PO DAILY BP (Reported) Aspirin (Ecotrin*) 81 MG TABLET. 1 TAB PO DAILY HEART/BLOOD (Reported) Cabergoline 0.5 MG TABLET 0.5 TAB PO PROLCATINOMA (Reported) Clopidogrel Bisulfate (Clopidogrel) 75 MG TABLET 1 TAB PO DAILY BLOOD THINNER (Reported) Oseltamivir Phosphate (Tamiflu) 30 MG CAPSULE 1 CAP PO BID influenza . Pantoprazole Sodium (Protonix) 40 MG TABLET.DR 1 TAB PO DAILY stomach burning Rosuvastatin Calcium (Crestor) 40 MG TABLET 1 TAB PO DAILY CHOLESTEROL ( Reported) Compliance With Home Meds: GOOD Past History Travel History Traveled to [place] past 21 day No Medical History Neurological: TIA EENT: cataracts Cardiovascular: CAD, hypertension, hyperlipidemia Respiratory: NONE Gastrointestinal: irritable bowel syndrome Hepatic: NONE Renal: NONE Musculoskeletal: NONE Psychiatric: NONE Endocrine: NONE Blood Disorders: NONE Cancer(s): melanoma Surgical History Surgical History: none Past Family/Social History Family History Relations & Conditions if any MOTHER FH: HTN (hypertension) FH: Parkinson's disease FATHER FH: stroke Psychosocial History Where do you live? Home Who Do You Live With? spouse Smoking Status: Former Smoker ETOH Use: denies use Illicit Drug Use: denies illicit drug use Functional Ability ADLs Independent: dressing, eating, toileting, bathing. Ambulation: independent IADLs Independent: shopping, housework, finances, food prep, telephone, transportation , medication admin. Review of Systems Review of Systems Constitutional: Reports: chills, weakness. Denies: diaphoresis, fever, malaise. EENTM: Reports: throat pain. Denies: visual changes. Cardiovascular: Reports: palpitations, peripheral edema, syncope. Denies: chest pain, orthopena. Respiratory: Reports: cough. Denies: hemoptysis, orthopnea, short of breath, sputum production, wheezing. GI: Reports: diarrhea. Denies: abdominal pain, nausea, vomiting. Genitourinary: Denies: dysuria, frequency. Musculoskeletal: Reports: no symptoms. Neurological/Psychological: Denies: headache, numbness, tremors, weakness. Exam & Diagnostic Data Last 24 Hrs of Vital Signs/I&O Vital Signs Date Time Temp Pulse Resp B/P B/P Pulse O2 O2 Flow FiO2 Mean Ox Delivery Rate 05/29 2218 98.5 73 16 137/60 98 Room Air 05/29 2101 75 110/61 05/29 1933 98.1 74 18 128/66 99 Room Air 05/29 1922 Room Air 05/29 1724 97.1 70 16 123/71 99 Room Air Physical Exam General Appearance Alert, Oriented X3, Cooperative, No Acute Distress Skin No Rashes Skin Temp/Moisture Exam: Warm/Dry HEENT Atraumatic, PERRLA, EOMI, dry mucous membranes Neck Supple, No JVD, No thryomegaly, No LAD Cardiovascular Regular Rate, Normal S1, Normal S2, No Murmurs Lungs Clear to Auscultation, Normal Air Movement Abdomen Normal Bowel Sounds, Soft, No Tenderness Neurological Normal Speech, Strength at 5/5 X4 Ext, Normal Tone, Sensation Intact, Cranial Nerves 3-12 NL, Reflexes 2+ Extremities No Edema, Normal Pulses, No Tenderness/Swelling Vascular Normal Pulses Last 24 Hrs of Labs/Ricky: Laboratory Tests 05/30/17 0149: Troponin I 0.03 05/29/17 1950: Anion Gap 13, Estimated GFR 31 L, BUN/Creatinine Ratio 16.7, Glucose 111 H, Calcium 9.1, Magnesium 2.1, Total Bilirubin 0.4, AST 33, ALT 35, Alkaline Phosphatase 89, Troponin I 0.03, Total Protein 7.3, Albumin 4.3, Globulin 3.0, Albumin/Globulin Ratio 1.4, Prolactin < 1.4 L, CBC w Diff NO MAN DIFF REQ, RBC 4.46 L, MCV 88.7, MCH 29.8, RDW 14.0, MPV 7.6, Gran % 70.8, Lymphocytes % 17.5 L, Monocytes % 10.7 H, Eosinophils % 0.6, Basophils % 0.4, Absolute Granulocytes 4.2, Absolute Lymphocytes 1.1 L, Absolute Monocytes 0.6, Absolute Eosinophils 0, Absolute Basophils 0, PUBS MCHC 33.6 05/29/17 193: Prolactin Cancelled Microbiology 05/29 2199 NASOPHARYN: Influenza Virus A & B Rapid Smear - COMP INFLUENZA TYPE B Diagnostic Data EKG Results Normal sinus rhythm with a heart rate of 71, normal axis, no ST-T changes, first -degree AV block. CXR Results FINDINGS: Lung volumes are improved from the prior study. No focal consolidation or mass. Normal pulmonary vascularity. No pleural effusion or pneumothorax. Calcified aortic arch. Normal heart size. Degenerative changes of the thoracic spine with no acute osseous abnormality. IMPRESSION: No acute pulmonary disease. Other Results SERVICE DATE: 05/29/17-1932 EXAM TYPE: CAT - CT CERV SPINE WO IV CONTRAST; CT HEAD WO IV CONTRAST FINDINGS: HEAD: No intracranial mass, hemorrhage, or midline shift is visualized. The ventricles and sulci are age-appropriate. Stable small lacunar infarcts in the right basal ganglia. No extra-axial collections are identified. The large mass in the central right aspect of the pituitary fossa with surrounding bony remodeling again seen. This was demonstrated to be a pituitary microadenoma on MRI of head 04/29/2017. See separate report. Vascular wall calcification of the carotid vessels again noted. No skull fracture. There is a soft tissue defect of the scalp at the right vertex, axial image 217 (6), that extends to the bone. CERVICAL SPINE: There is no evidence of acute cervical spine fracture. Vertebral bodies remain normal in height and alignment. There is degenerative spondylosis. Cervical disc height narrowing with endplate spurs most pronounced at the lower cervical spine, C5-C6. There is moderate multilevel facet joint bilateral. No pre- or paravertebral soft tissue abnormality is identified. The right lung apex there is a 6 x 4 mm lung nodule, image 283 (8). This is stable since the exam of 06/14/2016 IMPRESSION: 1. No acute intracranial pathology. 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 2. No CT evidence of acute cervical spine fracture or traumatic subluxation. Degenerative spondylosis of cervical spine. 3. 6 mm lung nodule right lung apex stable since CAT scan 06/14/2016 Assessment/Plan Assessment: 72-year-old male with a past medical history of coronary artery disease status post stents on Plavix, hyperprolactinemia currently on Keppra going, hypertension, hyperlipidemia, melanoma of the scalp who presents to the ED dry nonproductive cough that continued today and which this afternoon patient was in his private residence in his home got up from the sofa to answer a phone call from his answer the phone and then had a presumed loss of consciousness syncopal episode in which the police the patient was unconscious for approximately 30 seconds Vitals at the time of admission blood pressure 110/61, respiratory rate of 16, pulse of 70, afebrile saturating 99% on room air. Labs pertinent for an H&H of 13.3/39.5, white blood cell count of 6.0, normal platelet count of 1 91,000. Serum chemistries pertinent for a normal sodium 137 , potassium of 4.0, bicarbonate 24, anion gap of 13, BUN 35 and 2.1 baseline around 1.4. LFTs unremarkable with an AST/L2 32/35, alkaline phosphatase of 89, total bili of 2.4 and is remarkable 2.1. First set of troponin 0.03. Prolactin was less than 1.4. Chest x-ray showed no acute pulmonary disease. 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 Assessment and plan Placed under observation on telemetry for syncope #Syncope Most likely secondary to dehydration versus arrhythmia versus any valvular abnormality including aortic stenosis. We'll hydrate him with IV fluids at 75 MLS per hour Rule out ACS with troponins and EKG at 1 AM and 8 AM. Obtain records from audio visual director Dr. Palencia's office regarding the echocardiogram. Consider repeating echo to rule out for any valvular pathologies including earache stenosis. Of note patient does not have any heart murmur exam. Check orthostatic vitals Cardiology consult in a.m. with Dr. Colvin #Coronary artery disease Continue on aspirin 81 mg daily, Lipitor 80 mg daily, Spironolactone 25 mg PO daily; hold lisinopril given kenia #HTN Most likely secondary to dehydration in the setting of being on an AVILA Avoid nephrotoxic agents, hydrate with IV fluids and follow-up BEP in a.m. Continue to hold lisinopril for now and resume his renal function improves. #Influenza type B Patient is positive for flu will start him on Tamiflu 30 mg twice a day renally adjusted Place him on droplet precautions #Macroadenoma Continue on Ergotamine 0.5 mg every Wednesday and #Anxiety Continue on Xanax 0.5 mg twice a day by mouth #Hypertension Continue on amlodipine 10 mg daily Diet Heart healthy DVT prophylaxis On heparin 5000 international units 3 times a day subcutaneous CODE STATUS Full code As Ranked By This Provider Problem List: 1. Syncope 2. KENIA (acute kidney injury) 3. Flu Core Measures/Misc (02/07) Acute Coronary Syndrome ACS Diagnosis: No Congestive Heart Failure Congestive Heart Failure Diagnosis No Cerebrovascular Accident CVA/TIA Diagnosis: No VTE (View Protocol) VTE Risk Factors Age>40 No Mechanical VTE Prophylaxis d/t N/A MechProphylax Ordered No VTE Pharm Prophylaxis d/t NA PharmProphylax ordered Sepsis (View protocol) Sepsis Present: No Resident Review Statement Resident Statement: admitted by resident
[2017-05-30 06:04] VITALS: BP 121/69
[2017-05-30 06:04] LABS: ABSOLUTE BASOPHIL COUNT 0 /CUMM (0.0-0.2); ABSOLUTE EOSINOPHIL COUNT 0 /CUMM (0.0-0.7); ABSOLUTE GRANULOCYTE CT 2.8 /CUMM (1.4-6.5); ABSOLUTE MONOCYTE COUNT 0.5 /CUMM (0.10-0.60); BASOPHIL % 0.4 % (0.0-2.0); EOSINOPHIL % 0.9 % (0-5); GRANULOCYTE % 64.2 % (42.2-75.2); MEAN CORPUSCULAR HGB 29.7 PG (27.0-31.0); MEAN CORPUSCULAR VOLUME 87.4 FL (80.0-94.0); MEAN PLATELET VOLUME 7.6 FL (7.4-10.4); PLATELET COUNT 139 /CUMM (130-400); RBC DISTRIBUTION WIDTH 13.5 % (11.5-14.5); RED BLOOD CELL CT 3.94 /CUMM (4.70-6.10); WHITE BLOOD CELL COUNT 4.4 /CUMM (4.8-10.8)
[2017-05-30 06:05] VITALS: BP 121/69
[2017-05-30 06:06] VITALS: BP 121/69
[2017-05-30 06:08] LABS: HEMATOCRIT 34.5 % (42-52)
--- NOTE | 2017-05-30 11:29 | PN- Housestaff ---
Subjective Follow-up For: Syncope Rule out ACS flu Acute kidney injury Complaints: no complaints Subjective: patient was seen and examined this morning. He is alert awake and oriented to time place and person. No acute events overnight. music professor was uneventful. Patient denies any chest pain, palpitations, short of breath, fever, cough. Denies complaints Wants to leave this afternoon. Vitals were stable Review of Systems Constitutional: Reports: see HPI. Objective Last 24 Hrs of Vital Signs/I&O Vital Signs Date Time Temp Pulse Resp B/P B/P Pulse O2 O2 Flow FiO2 Mean Ox Delivery Rate 05/30 1137 98.3 66 20 123/62 94 05/30 1029 65 123/68 05/30 0606 99.5 69 20 121/69 96 Room Air 05/30 0605 99.5 69 20 121/69 96 Room Air 05/30 0604 99.5 69 20 121/69 96 Room Air 05/30 0602 99.5 69 20 121/69 96 Room Air 05/30 0156 99.8 72 20 138/71 94 Room Air 05/29 2314 99.5 81 20 160/76 98 Room Air 05/29 2218 98.5 73 16 137/60 98 Room Air 05/29 2101 75 110/61 05/29 1933 98.1 74 18 128/66 99 Room Air 05/29 1922 Room Air 05/29 1724 97.1 70 16 123/71 99 Room Air Intake & Output 05/30 1600 07 0800 05/30 0000 Intake Total 1000 Output Total 1200 Balance -1200 1000 Intake, IV 1000 Output, Urine 1200 Patient 90.718 kg 90.718 kg Weight Physical Exam General Appearance: Alert, Oriented X3, Cooperative, No Acute Distress Skin: No Rashes, No Breakdown HEENT: Atraumatic, PERRLA, EOMI, Mucous Membr. moist/pink Other Physical Findings: HEENT Atraumatic, PERRLA, EOMI, dry mucous membranes Neck Supple, No JVD, No thryomegaly, No LAD Cardiovascular Regular Rate, Normal S1, Normal S2, No Murmurs Lungs Clear to Auscultation, Normal Air Movement Abdomen Normal Bowel Sounds, Soft, No Tenderness Neurological Normal Speech, Strength at 5/5 X4 Ext, Normal Tone, Sensation Intact, Cranial Nerves 3-12 NL, Reflexes 2+ Extremities No Edema, Current Medications: Current Medications Sig/Jacky Start time Last Medication Dose Route Stop Time Status Admin Alprazolam 0 .STK-MED ONE 05/30 1015 DC PO Alprazolam 0.5 MG BID 05/30 1000 AC 05/30 PO 06/06 0959 1029 Amlodipine Besylate 10 MG DAILY 05/30 1000 AC 05/30 PO 1029 Aspirin Buffered 81 MG DAILY 05/30 1000 AC 05/30 PO 1029 Atorvastatin Calcium 80 MG 1700 05/30 1700 AC PO Benzonatate 100 MG ONCE ONE 05/29 2130 DC 05/29 PO 05/29 2131 2215 Cabergoline 0.5 MG QTHURS 06/03 1000 AC PO Cabergoline 0.5 MG QMON 05/31 07 AC PO Clopidogrel Bisulfate 75 MG DAILY 05/30 1000 AC 05/30 PO 1029 Guaifenesin 600 MG ONCE ONE 05/29 2130 DC 05/29 PO 05/29 2131 2215 Heparin Sodium 0 .STK-MED ONE 05/30 0554 DC (Porcine) .ROUTE Heparin Sodium 0 .STK-MED ONE 05/29 2332 DC (Porcine) .ROUTE Heparin Sodium 5,000 UNIT Q8 05/29 2317 AC 05/30 (Porcine) SC 0601 Non-Formulary 0 SEE ADMIN CRITERIA 05/30 0015 CAN Medication ANY Omeprazole 40 MG DAILY AC 05/30 0700 AC 05/30 PO 0601 Omeprazole 0 .STK-MED ONE 05/30 0554 DC PO Oseltamivir Phosphate 30 MG BID 05/29 2243 AC 05/30 PO 06/02 2242 1029 Sodium Chloride 1,000 ML Q13H 05/29 2330 AC 05/29 IV 05/31 0129 2337 Sodium Chloride 1,000 ML BOLUS ONE 05/29 2045 DC 05/29 IV 05/29 2144 2105 Spironolactone 25 MG DAILY 05/30 1000 AC 05/30 PO 1029 Last 24 Hrs of Lab/Ricky Results Last 24 Hrs of Labs/Mics: Laboratory Tests 05/30/17 0557: Anion Gap 9, Estimated GFR 46 L, BUN/Creatinine Ratio 18.0, CBC w Diff NO MAN DIFF REQ, RBC 3.94 L, MCV 87.4, MCH 29.7, RDW 13.5, MPV 7.6, Gran % 64.2, Lymphocytes % 22.1, Monocytes % 12.4 H, Eosinophils % 0.9, Basophils % 0.4, Absolute Granulocytes 2.8, Absolute Lymphocytes 1.0 L, Absolute Monocytes 0.5, Absolute Eosinophils 0, Absolute Basophils 0, PUBS MCHC 34.0 05/30/17 0149: Troponin I 0.03 05/29/172199: Virus Culture Pending 05/29/17 1950: Anion Gap 13, Estimated GFR 31 L, BUN/Creatinine Ratio 16.7, Glucose 111 H, Calcium 9.1, Magnesium 2.1, Total Bilirubin 0.4, AST 33, ALT 35, Alkaline Phosphatase 89, Troponin I 0.03, Total Protein 7.3, Albumin 4.3, Globulin 3.0, Albumin/Globulin Ratio 1.4, Prolactin < 1.4 L, CBC w Diff NO MAN DIFF REQ, RBC 4.46 L, MCV 88.7, MCH 29.8, RDW 14.0, MPV 7.6, Gran % 70.8, Lymphocytes % 17.5 L, Monocytes % 10.7 H, Eosinophils % 0.6, Basophils % 0.4, Absolute Granulocytes 4.2, Absolute Lymphocytes 1.1 L, Absolute Monocytes 0.6, Absolute Eosinophils 0, Absolute Basophils 0, PUBS MCHC 33.6 05/29/17 193: Prolactin Cancelled Microbiology 05/29 2199 NASOPHARYN: Influenza Virus A & B Rapid Smear - COMP INFLUENZA TYPE B Assessment/Plan Assessment: 72-year-old male with a past medical history of coronary artery disease status post stents on Plavix, hyperprolactinemia currently on Keppra going, hypertension, hyperlipidemia, melanoma of the scalp who presents to the ED for dry nonproductive cough and presumed loss of consciousness syncopal episode. patient was unconscious for approximately 30 seconds. Vitals at the time of admission blood pressure 110/61, respiratory rate of 16, pulse of 70, afebrile saturating 99% on room air. Labs pertinent for an H&H of 13.3/39.5, white blood cell count of 6.0, normal platelet count of 1 91,000. Serum chemistries pertinent for a normal sodium 137 , potassium of 4.0, bicarbonate 24, anion gap of 13, BUN 35 and 2.1 baseline around 1.4. LFTs unremarkable with an AST/L2 32/35, alkaline phosphatase of 89, total bili of 2.4 and is remarkable 2.1. First set of troponin 0.03. Prolactin was less than 1.4. Chest x-ray showed no acute pulmonary disease. 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 Assessment and plan Placed under observation on telemetry for syncope #Syncope Most likely secondary to dehydration versus arrhythmia versus any valvular abnormality including aortic stenosis. We'll hydrate him with IV fluids at 75 MLS per hour Rule out ACS with troponins and EKG - normal will Obtain records from milking worker Dr. Palencia's office regarding the echocardiogram. Consider repeating echo to rule out for any valvular pathologies based on cardiology recommendations orthostatic vitals were normal Dr. Colvin on board #Coronary artery disease Continue on aspirin 81 mg daily, Lipitor 80 mg daily, Spiranolactone 25 mg hold lisinopril given kenia KENIA Most likely secondary to dehydration in the setting of being on an eve Avoid nephrotoxic agents, hydrate with IV fluids and follow-up BEP in a.m. cr improving 1.5 from 2.1 Continue to hold lisinopril for now and resume if his renal function improves. #Influenza type B Patient is positive for flu will start him on Tamiflu 30 mg twice a day renally adjusted Place him on droplet precautions #Macroadenoma Continue on Ergotamine 0.5 mg every Wednesday and #Anxiety Continue on Xanax 0.5 mg twice a day by mouth #Hypertension Continue on amlodipine 10 mg daily Diet Heart healthy DVT prophylaxis On heparin 5000 international units 3 times a day subcutaneous CODE STATUS Full code Problem List: 1. R/O ACS 2. Flu 3. KENIA (acute kidney injury) 4. URI (upper respiratory infection) 5. Syncope Pain Ratin Pain Location: n/a Pain Goal: Remain pain free Pain Plan: tylinol Tomorrow's Labs & Rationales: cbc bep
[2017-05-30] MEDS ORDERED: TAMIFLU30 M1 PO ×2 (12:24→14:53)
--- NOTE | 2017-05-30 12:26 | Patient Discharge Instructions ---
Discharge Instructions General Discharge Information You were seen/treated for: Syncope Ruled out ACS flu Acute kidney injury Special Instructions: Please follow-up with PCP in one week after discharge Please follow-up with shellfish shucker in 1 week after discharge Please complete your 5 day course of tamiflu Diet Continue normal diet: Yes Recommended Diet: Heart Healthy Activity Full Activity/No Limits: Yes Acute Coronary Syndrome Inclusion Criteria At DC or during hospital stay patient has or had the following: ACS DIAGNOSIS No Discharge Core Measures Meds if any: Prescribed or Continued at Discharge Meds if any: NOT Prescribed or Continued at Discharge Congestive Heart Failure Inclusion Criteria At DC or during hospital stay patient has or had the following: CHF DIAGNOSIS No Discharge Core Measures Meds if any: Prescribed or Continued at Discharge Meds if any: NOT Prescribed or Continued at Discharge Cerebrovascular accident Inclusion Criteria At DC or during hospital stay patient has or had the following: CVA/TIA Diagnosis No Discharge Core Measures Meds if any: Prescribed or Continued at Discharge Meds if any: NOT Prescribed or Continued at Discharge Venous thromboembolism Inclusion Criteria VTE Diagnosis No VTE Type NONE VTE Confirmed by (Test) NONE Discharge Core Measures - Per Current guidelines, there needs to be overlap - treatment for the first 5 days of Warfarin therapy. - If discharged on Warfarin prior to 5 days of - overlap therapy, the patient will need to be - assessed for post discharge needs including - *Post discharge parental anticoagulation - *Warfarin and/or parental anticoagulation education - *Follow up date to check INR post discharge At least 5 days overlap therapy as Inpatient No Meds if any: Prescribed or Continued at Discharge Note: Overlap Therapy is Warfarin and Anticoagulant Meds if any: NOT Prescribed or Continued at Discharge
[2017-05-30 14:15] VITALS: BP 116/72
--- NOTE | 2017-05-30 14:38 | Cons- Cardiology ---
General Information and HPI Consulting Request Date of Consult: 05/30/17 Requested By: Marii CORDERO PHD,[place]o Vera History of Present Illness: This patient is a 72 year old male with history of hypertension, dyslipidemia, TIA and coronary artery disease status post stent placement. He also has hyperprolactinemia that is being treated with Cabergoline. This patient has recently been experiencing a a viral syndrome characterized by weakness, lethargy, fever and chills, cough and sore throat. Yesterday, he was lying on his couch when the phone rang. He arose and walked to the kitchen to anwer the phone at which time he felt lightheaded and subsequently passed out. He denies having any associated palpitations at this time or in the past. He did document hypotension with a blood pressure of 87/57 and had watery diarrhea. He does not typically feel lightheaded. At baseline, he is an active individual without chest pain, pressure, tightness, shortness of breath, ligtheadedness or palpitations. In the ER the patient was found to have influenza B. He now feels improved. His creatinine is elevated to 2.1. His last echocardiogram was reportedly normal. Allergies/Medications Allergies: Coded Allergies: NO KNOWN ALLERGIES (06/27/12) Home Med List: Alprazolam 0.5 MG TABLET 1 TAB PO BID ANXIETY (Reported) Amlodipine Besylate 10 MG TABLET 1 TAB PO DAILY BP (Reported) Aspirin (Ecotrin*) 81 MG TABLET.DR 1 TAB PO DAILY HEART/BLOOD (Reported) Cabergoline 0.5 MG TABLET 0.5 TAB PO TH PROLCATINOMA (Reported) Clopidogrel Bisulfate (Clopidogrel) 75 MG TABLET 1 TAB PO DAILY BLOOD THINNER (Reported) Lisinopril 40 MG TABLET 1 TAB PO DAILY BP (Reported) Oseltamivir Phosphate (Tamiflu) 30 MG CAPSULE 1 CAP PO BID influenza Pantoprazole Sodium (Protonix) 40 MG TABLET.DR 1 TAB PO DAILY stomach burning Rosuvastatin Calcium (Crestor) 40 MG TABLET 1 TAB PO DAILY CHOLESTEROL ( Reported) Spironolactone 25 MG TABLET 1 TAB PO DAILY DIURETIC (Reported) Review of Systems Review of Systems: cough, sore throat, diarrhea Past History Travel History Traveled to [place] past 21 day No Medical History Blood Transfusion Hx: No Neurological: TIA EENT: cataracts Cardiovascular: CAD, hypertension, hyperlipidemia Respiratory: NONE Gastrointestinal: irritable bowel syndrome Hepatic: NONE Renal: NONE Musculoskeletal: NONE Psychiatric: NONE Endocrine: NONE Blood Disorders: NONE Cancer(s): melanoma Surgical History Surgical History: 1 Family History Relations & Conditions If Any: MOTHER FH: HTN (hypertension) FH: Parkinson's disease FATHER FH: stroke Psychosocial History Where Do You Live? Home Who Do You Live With? spouse Smoking Status: Former Smoker ETOH Use: denies use Illicit Drug Use: denies illicit drug use Functional Ability ADLs Independent: dressing, eating, toileting, bathing. Ambulation: independent IADLs Independent: shopping, housework, finances, food prep, telephone, transportation , medication admin. Exam & Diagnostic Data Vital Signs and I&O Vital Signs Date Time Temp Pulse Resp B/P B/P Pulse O2 O2 Flow FiO2 Mean Ox Delivery Rate 05/30 1415 99.9 72 18 116/72 96 05/30 1137 98.3 66 20 123/62 94 05/30 1029 65 123/68 05/30 0606 99.5 69 20 121/69 96 Room Air 05/30 0605 99.5 69 20 121/69 96 Room Air 05/30 0604 99.5 69 20 121/69 96 Room Air 05/30 0602 99.5 69 20 121/69 96 Room Air 05/30 0156 99.8 72 20 138/71 94 Room Air 05/29 2314 99.5 81 20 160/76 98 Room Air 05/29 2218 98.5 73 16 137/60 98 Room Air 05/29 2101 75 110/61 05/29 1933 98.1 74 18 128/66 99 Room Air 05/29 1922 Room Air 05/29 1724 97.1 70 16 123/71 99 Room Air Intake & Output 05/30 1600 05/30 0800 05/30 0000 05/29 1600 05/29 0800 05/29 0000 Intake Total 1000 Output Total 1200 Balance -1200 1000 Intake, IV 1000 Output, Urine 1200 Patient 200 lb 200 lb Weight Physical Exam: General: WD/WN male in NAD; alert and oriented x 3 HEENT: NC/AT, PERRL, EOMI Neck: no JVD, no carotid bruit Heart: RRR w/o murmur Lungs: clear bilaterally Abdomen: soft, NT, +ve bowel sounds Extremities: no edema Diagnostic Data EKG Results sinus rhythm with first degree AV block and IVCD Assessment/Plan Assessment/Plan * This patient has the "flu" which we are treating with Tamiflu. He likely became dehydrated from feeling weak and, in addition, experienced vasodilitation in the setting of fever. As such, he became orthostatic upon arising and passed out. Dehydration is supported by an elevated serum creatinine which has now come down to baseline. Despite his first degree AV block I do not think that he had an arrhythmia or heart block causing his syncope. I would hold his Lisinopril and Spironolactone and encourage oral fluid intake for now. He can be discharge from a cardiac standpoint with follow up by Dr. Palencia who may well restart his antihypertensive medications once the patient is improved in regard to his viral syndrome. Consult Acknowledgment - Thank you for your consult request.
== END 2017-05-30 15:30 ==
LOC: ERH 17:21 → ERHI 21:16
PROVIDERS: Internal Medicine Infectious Disease; Physician Assistant
DX: R55 Syncope and collapse (principal); I25.10 Atherosclerotic heart disease of native coronary artery without angina pectoris; J06.9 Acute upper respiratory infection, unspecified; R50.9 Fever, unspecified; Z79.82 Long term (current) use of aspirin; N17.9 Acute kidney failure, unspecified; Z86.73 Personal history of transient ischemic attack (TIA), and cerebral infarction without residual deficits; K58.9 Irritable bowel syndrome, unspecified; I10 Essential (primary) hypertension; E78.5 Hyperlipidemia, unspecified; Z85.820 Personal history of malignant melanoma of skin; Z95.5 Presence of coronary angioplasty implant and graft
CPT/HCPCS: 6090; 71046; 82436; 87804; 87804-59; 93005; 93010; 96372; G0378; J1644; J8515

== ENCOUNTER → 2017-11-26 | Day surgery (SDC) | payer OTHER ==
[~2017-11-26] VITALS: Ht 172.7 cm; Wt 87.1 kg
[~2017-11-26] MED LIST changes: +TAMIFLU30 M1 PO; +ZESTRIL10 M1 PO
--- NOTE | 2017-11-26 09:47 | Operative Report ---
Operative/Inv Procedure Report Surgery Date: 11/26/17 Name of Procedure: 1. Excision neck mass, left with nerve monitor 2. Excision preauricular lesion, right 3. ReExcision preauricular basal cell carcinoma with rotation advancement flap reconstruction Pre-Operative Diagnosis: 1. Neck mass, left 2. Preauricular basal cell carcinoma, right Post-Operative Diagnosis: Same Estimated Blood Loss: scant Surgeon/Recreation Therapy Director: Tessie Tang MD Anesthesia: general endotracheal tube Monitors: NIMS monitor Specimens: 1. Preauricular lesion, right, stitch 12 o'clock, submitted twice 2. Neck mass, left Complications: none Condition: Stable on leaving the OR Operative Indication: 1. Neck mass, left, level II 2. Preauricular basal cell carcinoma, , right, previously excised with positive margins Operative/Procedure Note Note: The patient was brought to the operating room, placeded on the operating room table in supine position. At first timeout was performed including patient's identification and the surgical procedure to be performed. Then general oroendotracheal anesthesia was induced. The table was left in the same position as for intubation. Head was rotated to the left, preauricular area on the right was exposed. Injection of 1% lidocaine with 1 100,000 epinephrine was carried. Approximately 3 mL of solution was injected. The area was prepped with Betadine and sterilely draped. After adequate waiting time surgery was performed. There was scarring in preauricular area from prior excision. The scar as well as adjacent what appeared to be healthy tissue was excised through the skin into the subcutaneous layer to layer. Subcutaneous layer was dissected through what appeared to be normal tissue. Lesion was completely excised and removed. The specimen was marked for orientation with 12:00 stitch. The skin edges were then undermined and advanced onto the defect. Skin was approximated with 5-0 Monocryl sutures this followed by application of Dermabond and placement of Steri-Strips. Next, table was rotated 90 to the patient's left away from anesthesia with left neck toward the surgeon. Head was rotated to the right, left neck exposed. NIMS monitor electrodes were inserted into the right lower lip and nasolabial fold for nerve monitoring of the marginal mandibular and buccinator nerves. The electrodes were was secured in place with OpSite. They were then connected to the NIMS monitor which was then set neck dissection mode, 2 leads. Neck was prepped and draped in the routine manner and surgery was performed. A horizontal fusiform incision was placed overlying the lesion and incorporating the skin directly over the lesion into the specimen. The incision was carried and a skin crease manner about 2 fingerbreadths below the mandible. The incision was crosshatched for the end of the surgery skin approximation. The incision was carried with a 15 blade through the skin and subcutaneous tissue. The lesion was palpated it measured approximately 1 x 2 cm. Dissection was carried through the subcutaneous fibrofatty layer until the lesion was circumferentially dissected and freed from surrounding tissue. Nerve probe was used to be stimulate the area looking for the marginal mandibular nerve which was not within the dissecting region. Greater auricular nerve with its anterior branch was identified over the posterior limit of dissection. The nerve was preserved. The lesion was located within the left level II region. Closure was then carried. Wound was copiously irrigated. Additional bleeding sites cauterized with bipolar. Helotene powder was placed into the neck dissection bed. Closure was then carried at first platysma with 4-0 Vicryl inverting sutures followed by skin closure with 5-0 Vicryl horizontal subcuticular running stitch. Dermabond was applied to the incision followed by Steri-Strips. In the meantime frozen section returned on preauricular region. Frozen section showed all positive margin between 12 and 3:00. Operating completion of left neck surgery. The surgical bed was returned to all its original position with habits toward the anesthesiologist. Patient was repositioned with exposure of the right preauricular region. The area was reprepped with Betadine and sterilely dressed. Steri-Strips Dermabond and sutures were removed. In the preauricular skin that was approximately 0.5 x 0.5 all excoriated all lesion. A circular incision was then carried incorporating 12 to 3:00 margin and excoriated lesion. The excised lesion measured approximately 1.5 x 1.5 cm. It was marked with 12:00 stitch for orientation. The specimen was submitted to pathology for frozen section. In the meantime closure was carried. Skin was undermined and advanced onto the defect. Advancement -rotation flap was created in preauricular region to compensate for the circular defect. 5-0 Biosyn inverting stitch was used to approximate the subcutaneous layer followed by a horizontal subcuticular stitch. This followed by Dermabond and Steri-Strips. Frozen section returned as negative margins. Surgery was completed Wraparound pressure dressing was applied to for the left neck . Patient was then reawakened, extubated and taken to the recovery room in good condition. There were no complications. Estimated blood loss was less than 20 mL . Findings: 1. Neck mass, left level II 2. Preauricular lesion, right, stitch 12:00, frozen section with positive margin 12 to 3:00 3. Reexcision preauricular lesion, stitch 12:00, frozen section negative Discharge Disposition: PACU Discharge Disposition: PACU Closure was then carried at first platysma with 4-0 Vicryl inverting sutures followed by skin closure with 5-0 Vicryl horizontal subcuticular running stitch. Dermabond was applied to the incision followed by Steri-Strips. Drain tubing was connected to the TOMI self suction carnisters. Pressure dressing was placed with fluffs and wraparound four-inch gauze. Patient was then reawakened, extubated and taken to the recovery room in good condition. There were no complications. Estimated blood loss was 30 mL. Findings: 1. Neck mass, left level II 2. Preauricular lesion, right, stitch 12:00 Discharge Disposition: PACU
== END ==
LOC: STS 03:25
DX: C44.41 Basal cell carcinoma of skin of scalp and neck (principal); C44.319 Basal cell carcinoma of skin of other parts of face; I10 Essential (primary) hypertension; I25.10 Atherosclerotic heart disease of native coronary artery without angina pectoris; I25.2 Old myocardial infarction; Z85.828 Personal history of other malignant neoplasm of skin; Z79.82 Long term (current) use of aspirin
CPT/HCPCS: J0131; J0690; J1100; J2250; J2405

== ENCOUNTER 2017-11-27 01:18 | Emergency (ER) | payer OTHER ==
[~2017-11-27] VITALS: Ht 172.7 cm; Wt 86.2 kg
--- NOTE | 2017-11-27 02:03 | ED GI/GU/ABDOMINAL COMPLAINT ---
History of Present Illness General Chief Complaint: General Adult Stated Complaint: SURGERY YESTERDAY, ABD PAIN, HIGH BP PER PT Source: patient Exam Limitations: no limitations Vital Signs & Intake/Output Vital Signs & Intake/Output Vital Signs Date Time Temp Pulse Resp B/P B/P Pulse O2 O2 Flow FiO2 Mean Ox Delivery Rate 11/27 0315 98.1 74 18 136/72 98 Room Air 11/27 0141 96.5 100 20 144/82 96 Room Air Allergies Coded Allergies: ticagrelor (From BRILINTA) (Mild, RASH 11/22/17) Iodinated Contrast- Oral and IV Dye (RASH 11/22/17) Reconcile Medications Alprazolam 0.5 MG TABLET 1 TAB PO BID ANXIETY (Reported) Amlodipine Besylate 10 MG TABLET 1 TAB PO DAILY BP (Reported) Aspirin (Ecotrin*) 81 MG TABLET.DR 1 TAB PO DAILY HEART/BLOOD (Reported) Cabergoline 0.5 MG TABLET 0.5 TAB PO MON.THURS PROLCATINOMA (Reported) Clopidogrel Bisulfate (Clopidogrel) 75 MG TABLET 1 TAB PO DAILY BLOOD THINNER (Reported) Lisinopril (Zestril) 10 MG TABLET 1 TAB PO DAILY BP (Reported) Pantoprazole Sodium (Protonix) 40 MG TABLET.DR 1 TAB PO DAILY stomach burning Rosuvastatin Calcium (Crestor) 40 MG TABLET 1 TAB PO DAILY CHOLESTEROL ( Reported) Spironolactone 25 MG TABLET 1 TAB PO DAILY DIURETIC (Reported) Triage Note: PT HERE FROM HOME WITH C/O ELEVATED BP AND HEART RATE AND STOMACH PAINS. PER PT HAVE CYSTS REMOVED FROM HIS NECK ON LEFT SIDE AND 2 REMOVED FROM ABOVE RIGHT EAR. PT REPORTS HE HAS " HEART BURN". Triage Nurses Notes Reviewed? yes Onset: Gradual Duration: hour(s): Timing: recent history Quality/Severity: cramping Location: generalized abdomen Radiation: no radiation Activities at Onset: post surgery Modifying Factors: Improves With: rest. Associated Symptoms: abd distension. HPI: 72 YO gentleman presents with abdominal distension and mid epigastric discomfort that began at approximately 6pm after taking an antibiotic. No fever, vomiting, diarrhea, chills. "I went home yesterday afternoon from the surgery and was fine, but then this morning, I felt some pain in my stomach." He notes bloated and "gassiness." He had left neck and right skin/mandaeism surgery Past History Travel History Traveled to [place] past 21 day No Medical History Any Pertinent Medical History? see below for history Neurological: TIA EENT: cataracts Cardiovascular: CAD, hypertension, hyperlipidemia Respiratory: NONE Gastrointestinal: irritable bowel syndrome Hepatic: NONE Renal: NONE Musculoskeletal: NONE Psychiatric: NONE Endocrine: NONE Blood Disorders: NONE Cancer(s): melanoma History of MRSA: No History of VRE: No History of CDIFF: No Surgical History Surgical History: right renal surgery in 2017, left neck/cyst surgery 2018 Psychosocial History Who do you live with Spouse What is your primary language Welsh Tobacco Use: Never used ETOH Use: occasional use Illicit Drug Use: denies illicit drug use Family History Family History, If Any: MOTHER FH: HTN (hypertension) FH: Parkinson's disease FATHER FH: stroke Hx Contributory? No Review of Systems Review of Systems Constitutional: Reports: no symptoms. EENTM: Reports: no symptoms. Respiratory: Reports: no symptoms. Cardiovascular: Reports: no symptoms. GI: Reports: no symptoms. Genitourinary: Reports: no symptoms. Musculoskeletal: Reports: no symptoms. Skin: Reports: no symptoms. Neurological/Psychological: Reports: no symptoms. Hematologic/Endocrine: Reports: no symptoms. Immunologic/Allergic: Reports: no symptoms. All Other Systems: Reviewed and Negative Physical Exam Physical Exam Gastrointestinal: see below. Comments: Review of Systems - except as otherwise noted in HPI Physical Exam Physical Exam General Appearance: well developed/nourished, no apparent distress Head: atraumatic, normal appearance Eyes: Bilateral: normal appearance. Ears, Nose, Throat: normal pharynx, normal ENT inspection Neck: normal inspection, supple, full range of motion Respiratory: normal breath sounds, chest non-tender, no respiratory distress, quiet respiration, lungs clear Cardiovascular: regular rate/rhythm Gastrointestinal: normal bowel sounds, moderate distenstion, mild mid epigastric tenderness to palpation, no organomegaly Back: normal inspection, normal range of motion Extremities: normal inspection, normal capillary refill, normal range of motion, no edema Neurologic/Psych: no motor/sensory deficits, awake, alert, oriented x 3 Skin: intact, normal color, warm/dry Core Measures ACS in differential dx? No Sepsis Present: No Sepsis Focused Exam Completed? No Progress Differential Diagnosis: ileus vs obstruction vs other. Plan of Care: Orders Procedure Date/time Status TROPONIN LEVEL 11/27 0203 Complete LIPASE 07/07 0203 Complete HEPATIC FUNCTION PANEL 11/27 202 Complete CBC WITHOUT DIFFERENTIAL 11/27 202 Complete BASIC METABOLIC PANEL 11/27 202 Complete AMYLASE 11/27 202 Complete EKG 11/27 202 Active Current Medications Sig/Jacky Start time Last Medication Dose Stop Time Status Admin Famotidine 40 MG ONCE ONE 11/27 344 UNVr (Pepcid) 11/27 345 Pantoprazole Sodium 40 MG ONCE ONE 11/27 229 CAN (Protonix) 11/27 230 Laboratory Tests 11/27/17224: Anion Gap 14, Estimated GFR 54 L, BUN/Creatinine Ratio 16.2, Glucose 162 H, Calcium 9.7, Total Bilirubin 0.3, Direct Bilirubin 0.2, AST 22, ALT 28, Alkaline Phosphatase 83, Troponin I < 0.01, Total Protein 7.2, Albumin 4.3, Amylase 137 H, Lipase 121, CBC w Diff NO MAN DIFF REQ, RBC 4.40 L, MCV 87.0, MCH 29.6, MCHC 34.1, RDW 14.8 H, MPV 7.8, Gran % 90.8 H, Lymphocytes % 5.6 L, Monocytes % 3.5, Eosinophils % 0, Basophils % 0.1, Absolute Granulocytes 10.6 H, Absolute Lymphocytes 0.7 L, Absolute Monocytes 0.4, Absolute Eosinophils 0, Absolute Basophils 0 Diagnostic Imaging: Viewed by Me: Radiology Read. Discussed w/RAD: Radiology Read. CXR Impression: PATIENT: JOSH BATRES PRESENT AGE: 72 PATIENT ACCOUNT NO: [id number] : 46 LOCATION: [facility] ORDERING PHYSICIAN: Familia Tomlinson MD SERVICE DATE: 11/27/17 EXAM TYPE: RAD - XRY- PORTABLE CHEST XRAY EXAMINATION: XR PORTABLE CHEST CLINICAL INFORMATION: Chest pain. COMPARISON: Chest x-ray May 29, 2017 TECHNIQUE: Portable frontal view of the chest was obtained. 2:45 AM FINDINGS: Low lung volume. There is focal parenchymal patchy infiltrate at the left lung base. No pulmonary vascular congestion. No large pleural effusion. IMPRESSION: Left lower lobe focal consolidation. DICTATED BY: Dean Sharpe MD DATE/TIME DICTATED:11/27/17306 PRODUCT DEVELOPMENT:JOY DATE/TIME TRANSCRIBED:07/07/18 / 0307 CONFIDENTIAL, DO NOT COPY WITHOUT APPROPRIATE AUTHORIZATION. <Electronically signed in Other Vendor System> SIGNED BY: Dean Sharpe MD 11/27/17 0311, PATIENT: JOSH BATRES PRESENT AGE: 72 PATIENT ACCOUNT NO: [id number] : 46 LOCATION: [facility] ORDERING PHYSICIAN: Familia Tomlinson MD SERVICE DATE: 11/27/17 EXAM TYPE: CAT - CT ABD & PELVIS W/O IV CONTRAS EXAMINATION: CT ABDOMEN AND PELVIS WITHOUT CONTRAST CLINICAL INFORMATION: Abdominal distention COMPARISON: CT chest June 14, 2016. TECHNIQUE: Multidetector volumetric imaging was performed from the superior aspect of the liver through the pubic symphysis. Sagittal and coronal reformatted images were obtained on the technologist's workstation. DLP: 691.86 mGy-cm FINDINGS: LUNG BASES: The visualized lung bases are unremarkable. LIVER, GALLBLADDER, AND BILIARY TREE: The liver is normal in size, shape, and attenuation. No focal hepatic lesion or biliary ductal dilatation is present. There are a few tiny calcified gallstones within the gallbladder. The gallbladder is contracted. No edema around the gallbladder. There is no bile duct dilatation. PANCREAS: Unremarkable. SPLEEN: Unremarkable. ADRENAL GLANDS: There is a 2.2 cm lobular nodule in the right adrenal gland. Density measurement of 16 Hounsfield units. This is stable since CAT scan of June 14, 2016. There is a 1.3 cm nodule in the medial limb of the left adrenal gland. This has a density measurement of -6 Hounsfield units consistent with an adrenal adenoma. KIDNEYS AND URETERS: There is an exophytic mass from the right kidney. This is a soft tissue component and a macroscopic fatty component. The soft tissue component measures approximately 5 x 4 x 3.5 cm. This has a small peripheral linear calcification. Fatty component extends cephalad into the posterior right upper quadrant adjacent to the liver capsule is lobular in contour measuring about 4 x 3 x 3 cm. The presence of macroscopic fat is most consistent with a angiomyolipoma. There are rare cases of renal cell cancer containing macroscopic fat. When compared with the CT of the chest of June 14, 2016 the fat component of this lesion has increased in size. Left kidney is in the pelvis. There is no renal or ureteral calculus. There is no hydronephrosis. BLADDER: Unremarkable. GASTROINTESTINAL TRACT: The wall of the gastric antrum appears to be thickened with subtle edema in the adjacent fat, sagittal image 68. This could be due to an antritis. No bowel obstruction. The remainder of the bowel, duodenum, small bowel and large bowel demonstrates no acute abnormality. Moderate volume of stool throughout the colon. The appendix is normal. ABDOMINAL WALL: No significant hernia is appreciated. LYMPH NODES: Normal. VASCULAR: There is atherosclerotic vascular wall calcifications of aorta and iliac arteries. PELVIC VISCERA: Unremarkable. OSSEOUS STRUCTURES: Degenerative spondylosis spine multilevel disc height narrowing and plate spurring and facet joint arthrosis. IMPRESSION: 1. Thickening of the antrum of the stomach with subtle edema in the adjacent fat suggesting an antritis. Clinically correlate. 2. Exophytic cyst soft tissue mass containing macroscopic fat at the right kidney, most consistent with a angiomyolipoma. The macroscopic fat component of this lesion however has increased in size since the CAT scan of June 14, 2016. 3. Left adrenal adenoma. 4. Pelvic left kidney. 5. Cholelithiasis. No acute change of the gallbladder wall. This critical result was discussed with Dr. Tomlinson on 2017, 3:30 AM and it was ascertained that the content and urgency of the report was understood at the time of direct communication. DICTATED BY: Dean Sharpe MD DATE/TIME DICTATED:11/27/17309 PRODUCT DEVELOPMENT:JOY DATE/TIME TRANSCRIBED:11/27/17309 CONFIDENTIAL, DO NOT COPY WITHOUT APPROPRIATE AUTHORIZATION. <Electronically signed in Other Vendor System> SIGNED BY: Dean Sharpe MD 11/27/17 0336 Initial ED EKG: nsr, no acute changes Departure Departure Disposition: HOME OR SELF CARE Condition: Stable Clinical Impression Primary Impression: Gastritis Secondary Impressions: Fatty tumor, Renal mass Referrals: Patient Has No Primary Care Dr (PCP/Family) Departure Forms: Customer Survey General Discharge Information Comments 11/27/17, 3:30AM... discussed with [facility].... pt with renal mass.... most consistent with jun 14 2016... ct scan....when comparing 11/27/17, 4:02am... discussed with dr. briggs (urologist) who reviewed findings... 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 he will see the patient in follow up. 11/27/17, 4:07am....discussed in depth with patient... he will follow up with his urologist or dr. briggs...
[2017-11-27 02:41] LABS: ABSOLUTE BASOPHIL COUNT 0 /CUMM (0.0-0.2); ABSOLUTE EOSINOPHIL COUNT 0 /CUMM (0.0-0.7); ABSOLUTE GRANULOCYTE CT 10.6 /CUMM (1.4-6.5); ABSOLUTE LYMPH COUNT 0.7 /CUMM (1.2-3.4); ABSOLUTE MONOCYTE COUNT 0.4 /CUMM (0.10-0.60); BASOPHIL % 0.1 % (0.0-2.0); EOSINOPHIL % 0 % (0-5); HEMATOCRIT 38.3 % (42-52); MEAN CORPUSCULAR HGB 29.6 PG (27.0-31.0); MEAN CORPUSCULAR HGB CONC 34.1 G/DL (33.0-37.0); MEAN PLATELET VOLUME 7.8 FL (7.4-10.4); PLATELET COUNT 217 /CUMM (130-400); RBC DISTRIBUTION WIDTH 14.8 % (11.5-14.5)
[2017-11-27 02:44] LABS: GRANULOCYTE % 90.8 % (42.2-75.2)
[2017-11-27 03:04] LABS: WHITE BLOOD CELL COUNT 11.7 /CUMM (4.8-10.8)
--- NOTE | 2017-11-27 03:11 | RADIOLOGY REPORT ---
EXAMINATION: XR PORTABLE CHEST CLINICAL INFORMATION: Chest pain. COMPARISON: Chest x-ray May 29, 2017 TECHNIQUE: Portable frontal view of the chest was obtained. 2:45 AM FINDINGS: Low lung volume. There is focal parenchymal patchy infiltrate at the left lung base. No pulmonary vascular congestion. No large pleural effusion. IMPRESSION: Left lower lobe focal consolidation.
[2017-11-27 03:15] VITALS: BP 136/72
--- NOTE | 2017-11-27 03:36 | CT SCAN REPORT ---
EXAMINATION: CT ABDOMEN AND PELVIS WITHOUT CONTRAST CLINICAL INFORMATION: Abdominal distention COMPARISON: CT chest June 14, 2016. TECHNIQUE: Multidetector volumetric imaging was performed from the superior aspect of the liver through the pubic symphysis. Sagittal and coronal reformatted images were obtained on the technologist's workstation. DLP: 691.86 mGy-cm FINDINGS: LUNG BASES: The visualized lung bases are unremarkable. LIVER, GALLBLADDER, AND BILIARY TREE: The liver is normal in size, shape, and attenuation. No focal hepatic lesion or biliary ductal dilatation is present. There are a few tiny calcified gallstones within the gallbladder. The gallbladder is contracted. No edema around the gallbladder. There is no bile duct dilatation. PANCREAS: Unremarkable. SPLEEN: Unremarkable. ADRENAL GLANDS: There is a 2.2 cm lobular nodule in the right adrenal gland. Density measurement of 16 Hounsfield units. This is stable since CAT scan of June 14, 2016. There is a 1.3 cm nodule in the medial limb of the left adrenal gland. This has a density measurement of -6 Hounsfield units consistent with an adrenal adenoma. KIDNEYS AND URETERS: There is an exophytic mass from the right kidney. This is a soft tissue component and a macroscopic fatty component. The soft tissue component measures approximately 5 x 4 x 3.5 cm. This has a small peripheral linear calcification. Fatty component extends cephalad into the posterior right upper quadrant adjacent to the liver capsule is lobular in contour measuring about 4 x 3 x 3 cm. The presence of macroscopic fat is most consistent with a angiomyolipoma. There are rare cases of renal cell cancer containing macroscopic fat. When compared with the CT of the chest of June 14, 2016 the fat component of this lesion has increased in size. Left kidney is in the pelvis. There is no renal or ureteral calculus. There is no hydronephrosis. BLADDER: Unremarkable. GASTROINTESTINAL TRACT: The wall of the gastric antrum appears to be thickened with subtle edema in the adjacent fat, sagittal image 68. This could be due to an antritis. No bowel obstruction. The remainder of the bowel, duodenum, small bowel and large bowel demonstrates no acute abnormality. Moderate volume of stool throughout the colon. The appendix is normal. ABDOMINAL WALL: No significant hernia is appreciated. LYMPH NODES: Normal. VASCULAR: There is atherosclerotic vascular wall calcifications of aorta and iliac arteries. PELVIC VISCERA: Unremarkable. OSSEOUS STRUCTURES: Degenerative spondylosis spine multilevel disc height narrowing and plate spurring and facet joint arthrosis. IMPRESSION: 1. Thickening of the antrum of the stomach with subtle edema in the adjacent fat suggesting an antritis. Clinically correlate. 2. Exophytic cyst soft tissue mass containing macroscopic fat at the right kidney, most consistent with a angiomyolipoma. The macroscopic fat component of this lesion however has increased in size since the CAT scan of June 14, 2016. 3. Left adrenal adenoma. 4. Pelvic left kidney. 5. Cholelithiasis. No acute change of the gallbladder wall. This critical result was discussed with Dr. Tomlinson on 11/27/2017, 3:30 AM and it was ascertained that the content and urgency of the report was understood at the time of direct communication.
== END 2017-11-27 04:39 ==
LOC: ERH 01:18
PROVIDERS: Pediatrics
DX: K29.70 Gastritis, unspecified, without bleeding (principal); D17.9 Benign lipomatous neoplasm, unspecified; N28.89 Other specified disorders of kidney and ureter; I10 Essential (primary) hypertension
CPT/HCPCS: 71045; 74176; 93005; 93010